=== PATIENT | female | born 1950 | race Caucasian/White ===

== ENCOUNTER → 2024-06-05 | Outpatient (CLI) | payer MEDICARE ==
--- NOTE | 2024-06-07 19:20 | HMCSR ---
APPROVED REPORT EXAM: Two-dimensional and M-mode echocardiogram with Doppler and color Doppler. INDICATION ICD: I10.0 Essential (primary) Hypertension 2D Dimensions RVDd3.8 cmLVEF(%)61.6 (>50%)LVED Vol(simp.)104.0 mL IVSd0.9 (0.7-1.1cm)FS(%)33 %LVES Vol(simp.)42.0 mL LVDd5.1 (3.8-5.6cm)Ao Root(2D)3.2 (2.0-3.7cm)LVEF(%, simp.)60 % PWd0.9 (0.7-1.1cm)LVOT diam2.1 (1.8-2.4cm)LA ESV INDEX (BP)42.61 mL/m2 LVDs3.4 (2.5-4.0cm)IVC diam2.1 cm Aortic Valve AoV Vmax1.5 m/Stas Peak GR9.2 mmHgLVOT Vmax1.1 m/s AoV VTI0.4 mAo Mean GR5.4 mmHgLVOT VTI0.25 m ELENO (VMAX)2.2 cm2AVA (VTI) 2.2 cm2 Mitral Valve MV E Enfq456.2 cm/sDECEL Obzj529 ms MV A Vmax72.2 cm/sP 1/2 T51 ms E/A ratio1.6MVA (PHT)4.3 cm2 MR Max PG69 mmHg TDI E/E' Qmbfeu26.5E/E' Zuxpucr87.0 Pulmonary Valve PV Vmax0.9 m/sPV VTI0.21 mPV Mean GR2 mmHg PV Peak GR3.2 mmHgPI End Kathy. Howard 1.5 cm/s Tricuspid Valve TR Vmax3.0 m/sRAP (EST) 8 cgLzZFGC75.9 mmHg TR Peak GR36.9 mmHg Left Ventricle The left ventricle structure and function is normal. There is normal LV segmental wall motion. There is normal left ventricular wall thickness. LVEF is 60-65%. Grade 2 diastolic dysfunction. Right Ventricle The right ventricle is normal size. The right ventricular systolic function is normal. Atria The left atrium is moderately dilated. The right atrium is mildly dilated. Aortic Valve Aortic valve is trileaflet. Aortic valve leaflets are sclerotic but open well. Trace aortic regurgita tion. There is no aortic valvular stenosis. Mitral Valve Mitral valve leaflets are mildly sclerotic but open well. Mitral regurgitation is mild. There is no m itral valve stenosis. Tricuspid Valve The tricuspid valve leaflets appear normal. There is mild to moderate tricuspid regurgitation. Right ventricular systolic pressure is estimated at 40-50 mmhg. Pulmonic Valve Pulmonic valve is not well visualized. There is mild valvular regurgitation. Great Vessels The aortic root is normal in size. IVC is dilated and collapses >50% with inspiration. Pericardium No pericardial effusion. Conclusion LVEF is 60-65%. Grade 2 diastolic dysfunction. The left atrium is moderately dilated. Right ventricular systolic pressure is estimated at 40-50 mmhg. IVC is dilated and collapses >50% with inspiration.
== END | disposition home or self-care (01) ==
LOC: SHCH 08:24
PROVIDERS: ATTEND Internal Medicine Cardiovascular Disease
DX: I08.8 Other rheumatic multiple valve diseases (principal); I10 Essential (primary) hypertension
CPT/HCPCS: 93306

== ENCOUNTER → 2024-07-10 | Outpatient (CLI) | payer MEDICARE ==
[2024-07-10 16:27] LABS: CREATININE 0.8 mg/dL (0.5-1.0); MAGNESIUM 1.7 mg/dL (1.80-2.40); POTASSIUM 4.3 mmol/L (3.5-5.1)
== END | disposition home or self-care (01) ==
LOC: LAB 14:15
PROVIDERS: ATTEND Internal Medicine Cardiovascular Disease
DX: I10 Essential (primary) hypertension (principal); I47.10 Supraventricular tachycardia, unspecified; I47.19 Other supraventricular tachycardia; R00.2 Palpitations
CPT/HCPCS: 36415; 80048; 83735; 83880